=== PATIENT | female | born 2005 | race Caucasian/White ===

== ENCOUNTER 2025-05-22 13:48 | Emergency (ER) | payer BC, SELFPAY ==
[2025-05-22 13:54] VITALS: BP 120/83
--- NOTE | 2025-05-22 16:34 | ED.GENMED ---
History of Present Illness
General
Chief Complaint: Throat Problem
Source: patient
Exam Limitations: none
Time Seen by Provider: 05/22/25 16:14
Nursing documentation reviewed up to this point in time: agreed with
History of Present Illness
History of Present Illness:
19-year-old female presenting to the emergency department today with concerns of 24 hours of throat discomfort and fever starting yesterday difficulty swallowing and trouble swallowing any food or drink throughout the day today. Went to urgent care
and they were concerned of potential peritonsillar abscess on the right side sent her to the ER. Denies any similar symptoms in the past.
Review of Systems
Review of Systems
Allergies reviewed?: Yes
All Other Systems: ROS reviewed and negative except as documented in HPI and ROS
Phy Exam
Physical Exam
Physical Exam:
GENERAL: Alert , in no apparent distress
EYE: pupils equal and reactive
NECK: Supple, no significant adenopathy.
ENT: Swelling to the posterior pharynx mainly to the right side with uvular deviation towards the left. Exudative right tonsil. o/p clr, mmm.
CARDIAC: Regular rate and rhythm .
LUNGS: Clear breath sounds bilaterally, no acute respiratory distress, no wheezes/rales/rhonchi
ABDOMEN: Soft, without focal tenderness, no r/g, no cvat
NEUROLOGICAL: Alert and oriented, no focal neuro deficits
SKIN: Warm and dry, skin intact.
MUSCULOSKELETAL: No edema, well perfused.
PSYCH: Normal and appropriate interaction.
Course
Orders/Labs/Results
Orders:
Orders
05/22/25 16:31
0.9% Sodium Chloride 1000 ml [Nss] 1,000 ml IV BOLUS
Clindamycin Phosphate [Cleocin] 450 mg 0.9% Sodium Chloride [Nss] 50 ml IV NOW
Dexamethasone Sod Phosphate [Decadron] 10 mg IV NOW STA
Ketorolac [Toradol] 15 mg IV NOW STA
05/22/25 16:32
Test Result ONCE
05/22/25 16:41
Clindamycin Phosphate [Cleocin] 450 mg 0.9% Sodium Chloride [Nss] 50 ml IV NOW
05/22/25 16:54
Beta Hcg Serum Qualitative Screen [HCG, Serum Qualitative Screen] Urgent
CBC/With Diff [Complete Blood Count/With Diff] Urgent
CMP [Comprehensive Metabolic Panel] Urgent
Monotest Urgent
05/22/25 16:59
CT Neck With Iv Contrast Urgent
Comment:
Reason For Exam: posterior pharynx abscess eval
05/22/25 17:56
Morphine Sulfate 4 mg IV NOW STA
05/22/25 20:53
Throat Culture [Throat Culture, Comprehensive] Urgent
BENNY Source: Throat/Pharynx
Specimen Description:
Date Specimen was Collected: 05/22/25
Time Specimen was Collected: 20:46
Abnormal Lab Results
05/22/25
16:54
WBC 15.0 H 10^3/uL
(4.8-10.8)
RBC 4.19 L 10^6/uL
(4.20-5.40)
Hgb 9.0 L g/dL
(12.0-16.0)
Hct 29.1 L %
(37.0-47.0)
MCV 69.5 L fL
(81.0-99.0)
MCH 21.5 L pg
(27.0-31.0)
MCHC 30.9 L g/dL
(33.0-37.0)
RDW 18.8 H %
(11.5-14.5)
Abs Immat Gran (auto) 0.1 H 10^3/uL
(0-0.05)
Absolute Neuts (auto) 12.6 H 10^3/uL
(1.4-6.5)
Absolute Lymphs (auto) 0.7 L 10^3/uL
(1.2-3.4)
Absolute Monos (auto) 1.5 H 10^3/uL
(0.1-0.6)
Neutrophils % 84.2 H %
(42.2-75.2)
Lymphocytes % 4.9 L %
(20.5-51.1)
Monocytes % 10.1 H %
(1.7-9.3)
Sodium 133 L mmol/L
(135-145)
Carbon Dioxide 21 L mmol/L
(22-30)
05/22/25 16:54
05/22/25 16:54
Vital Signs
Initial and Last Documented VS:
Initial Vital Signs
Temp Pulse Resp BP Pulse Ox
99.9 F 116 18 120/83 97
05/22/25 13:54 05/22/25 13:54 05/22/25 13:54 05/22/25 13:54 05/22/25 13:54
Last Documented Vital Signs
Temp Pulse Resp BP Pulse Ox
99 F 96 20 129/70 99
05/22/25 18:29 05/22/25 18:29 05/22/25 18:29 05/22/25 18:29 05/22/25 18:29
Procedures
Incision/Drainage/Joint Aspiration
Right posterior pharynx:
Anethesia: other (Benzocaine spray, 1% lidocaine 2 cc)
Type of procedure: aspiration
Nature of site: abscess
Description of abscess: less than 3cm
Loculations broken up: No
How much fluid was obtained?: scant amount
Fluid description: purulent
Treatment: left open for drainage and antibiotics started
MDM/Problems Addressed
MDM/Problems Addressed:
89-year-old female presenting to the emergency department today with concerns of uvular deviation towards the left throat pain starting yesterday. Concern for peritonsillar abscess. CT scan confirming likely peritonsillar abscess versus phlegmon.
BENDER HAND drainage was performed with a small amount of purulence. Patient did have significant proved in her symptoms after treatment here. Case discussed with ENT will follow-up closely in the next 2 days. Return precautions given. Patient was
notified of her anemia on labs. She will follow-up with this
*Pulse Oximetry
SaO2: 97
Oxygen Mode of Delivery: Room air
Patient hypoxic: no (99)
*Critical Care Note
Total Time (30-74mins, 75-104mins- exclusive of procedures): Not Applicable
ED Attending Note
-
Portions of this chart may have been created with voice recognition software.� Occasional wrong word or��sound alike� substitutions may have occurred due to the inherent limitations of voice recognition software.
Discharge Plan
Departure
Patient Disposition: Home (Routine Discharge)
Date of Disposition: 05/22/25
Time of Disposition: 21:19
Patient with high blood pressure during this ER visit?: No
Condition: Good
Covid-19: Not Applicable
Discharge Problem:
Abscess, peritonsillar
Instructions: Peritonsillar Abscess, Adult (DC)
Prescriptions:
New
prednisone 20 mg tablet
40 mg PO DAILY 4 Days Qty: 8 0RF
clindamycin HCl [Cleocin HCl] 150 mg capsule
450 mg PO TID 7 Days Qty: 63 0RF
oxycodone 5 mg tablet
5 mg PO Q8H PRN (Reason: Pain) Qty: 7 0RF
No Action
acetaminophen [Tylenol] 325 mg Tablet
650 mg PO Q6HPRN PRN (Reason: MILD PAIN)
fluoxetine 20 mg Capsule
20 mg PO DAILY
norgestimate-ethinyl estradiol [Ndm-Ek-Liqner] 0.18/0.215/0.25 mg-0.025 mg Tablet
1 tab PO HS
Referrals:
Avinash Ly MD [Active, Otology] - Follow up in 5-7 days
UNKNOWN - PT DOES,NOT KNOW [Unknown Provider]
Stand Alone Forms: Back to School
Activity Restrictions/Additional Instructions:
You came to the emergency department today with concerns of a peritonsillar abscess. Please take the prescribed medications and follow-up closely with the ENT doctor. Please call [phone] on Saturday morning to make an appointment. Return for any
worsening, new or concerning symptoms.
Interventions
Interventions:
*Risk Screen - Suicide Last Done: 05/22/25 13:54
*General Assessment Last Done: 05/22/25 16:45
*Neglect/Abuse Screening Last Done: 05/22/25 16:45
*ED- Fall Risk Assessment Last Done: 05/22/25 16:45
*ED COVID-19 Vaccine History Last Done: 05/22/25 16:44
*ED Influenza Vaccine History Last Done: 05/22/25 16:44
*Nursing Disposition Last Done: 05/22/25 21:46
ED-EENT Assessment Last Done: 05/22/25 17:00
ED- Pulmonary Assessment Last Done: 05/22/25 17:00
Discharge Date and Time
Discharge Date/Time: 05/22/25 21:47
Print Language: GREENLANDIC
[2025-05-22 16:44] VITALS: BMI 22.7
[2025-05-22] MEDS: NSS 1000 IV (16:53)
[2025-05-22] MEDS: DECADRON 10 MG IV (16:53)
[2025-05-22 17:15] LABS: HCG, Serum Qualitative Screen Negative
[2025-05-22 17:21] LABS: ALT (SGPT) 11 U/L (0-35); AST (SGOT) 18 U/L (14-36); Albumin 4.6 g/dl (3.5-5.0); Alkaline Phosphatase 61 U/L (38-126); Blood Urea Nitrogen 7 mg/dl (7-17); Calcium 9.4 mg/dl (8.4-10.2); Carbon Dioxide 21 mmol/L (22-30); Chloride 102 mmol/L (98-107); Estimated Creatinine Clearance 119 ml/min; Glucose 87 mg/dl (70-99); Potassium 4.1 mmol/L (3.5-5.1); Sodium 133 mmol/L (135-145); Total Protein 7.9 g/dl (6.3-8.2); eGFR > 60.00
[2025-05-22] MEDS: CLEOCIN 53 MG IV (17:22)
[2025-05-22] MEDS: TORADOL 15 MG IV (17:22)
[2025-05-22 17:29] LABS: Hematocrit 29.1 % (37.0-47.0); Hemoglobin 9.0 g/dL (12.0-16.0); Mean Corp Hgb Conc. 30.9 g/dL (33.0-37.0); Mean Corpuscular Volume 69.5 fL (81.0-99.0); Nucleated Red Blood Cells % 0 %; Platelet Count 206 10^3/uL (130-400); Red Cell Dist. Width 18.8 % (11.5-14.5)
[2025-05-22 17:30] LABS: Anisocytosis 2+; Hypochromasia 2+; Macrocytosis 2+; Normal RBC Morphology No
[2025-05-22 17:31] LABS: Polychromasia Occasional; Stomatocytes 3+
[2025-05-22] MEDS: MORPHINE SULFATE 4 MG IV (17:59)
[2025-05-22 18:29] VITALS: BP 129/70
== END 2025-05-22 21:47 | disposition home or self-care (01) ==
LOC: EMR 13:48
PROVIDERS: Physician Assistant; EMERGENCY PHYSICIAN Emergency Medicine; FAMILY PHYSICIAN Family Medicine
DX: J36 Peritonsillar abscess (principal); D64.9 Anemia, unspecified; Z88.1 Allergy status to other antibiotic agents
CPT/HCPCS: 99284; 42700; 96374; 96375 ×3; 96361; 70491; 80053; 84703; 85025; 86308; 87070; Q9967